=== PATIENT | female | born 1985 | race Caucasian/White ===

== ENCOUNTER 2019-01-27 15:51 | Emergency (ER) | payer OTHER ==
--- OUTSIDE RECORDS SUMMARY | 2019-01-27 16:59 | XMS REPORT | Continuity of Care Document ---
:1985 External Reference #:[id number] Author Name Miya Rich Care Team Providers Name Role Phone Ulysses Lou MD Primary Care Physician Unavailable Payers Date Identification Numbers Payment Provider Subscriber Policy Number: [id number] Daniel Tabares Group Number: [id number] [address] PayID: [id number] [place] [address] Advance Directives Description No Information Available Problems Date Description Provider Status Onset: 08/11/2018 Anxiety Chanell Marker, RPA-C Active Onset: 08/11/2018 Major depressive disorder Chanell Marker, RPA-C Active Onset: 08/11/2018 Posttraumatic stress disorder Chanell Marker, RPA-C Active Onset: 08/11/2018 Contraception using injectable Chanell Marker, RPA-C Active contraceptive medication Note: Depo Provera Family History Date Family Member(s) Observation Comments Father Chronic Obstructive Pulmonary Disease (COPD) Father Depression Father Bipolar Disorder Mother No Current Problems First Sister 41 First Sister Bipolar Disorder First Sister Depression Second Sister No Current Problems Second Sister 48 Social History Type Date Description Comments Sex Unknown Marital Status Significant Other Lives With Boyfriend Lives With 08/11/2018 Children Boy age 8 Girl age 6 ETOH Use Denies alcohol use Tobacco Use Start: Unknown End: Patient is a former Unknown smoker Recreational Drug Use Never Used Drugs Smoking Status Reviewed: 01/12/19 Patient is a former smoker Exercise Type/Frequency Exercises regularly Allergies, Adverse Reactions, Alerts Date Description Reaction Status Severity Comments 07/23/2018 Codeine Active 07/23/2018 Naproxen Sodium Active 07/23/2018 Bee Sting Active 08/11/2018 Pineapple Allergenic Extract Anaphylaxis Active Severe Medications Medication Date Status Form Strength Qnty SIG Indications Ordering Provider Belviq 01/12 Active Tablets 10mg 30tab 1 tab po E66.9 Zsofi s q day Nelson, ACADEMIC ASSISTANT Medroxyprogesterone 08/11 Active Suspension 150mg/ml 1ml Inject Z30.09 Zsofia Acetate Im every Nelson, 3 months ACADEMIC ASSISTANT Fluoxetine HCL 07/23 Active Capsules 20mg 90cap One Ulysses (PMDD) s tablet D. [place], by mouth M.D.,FACP once daily. Xanax Active Tablets 0.5mg 75tab 1 tab Ulysses / s 2-3 D. [place], times M.D.,FACP daily. Do no fill until 08/16/18. Ambien Active Tablets 10mg take 12/01 Unknown to 1 tablet by mouth nightly at bedime as needed maximum daily dose of 1 per day Ibuprofen 07/23 Hx Tablets 200mg as needed Tracey, - DO 12/01 Fluoxetine HCL Hx Capsules 10mg 1 by Unknown /0000 mouth - every Immunizations Description No Information Available Vital Signs Date Vital Result Comment 01/12/2019 3:37pm Height 64.5 inches 5'4.50" Weight 268.12 lb Heart Rate 78 /min BP Systolic Sitting 110 mmHg large adult cuff left arm BP Diastolic Sitting 80 mmHg large adult cuff left arm Respiratory Rate 16 /min O2 % BldC Oximetry 97 % at rest on room air BMI (Body Mass Index) 45.3 kg/m2 12/01/2018 12:48pm Height 64.5 inches 5'4.50" Weight 274.00 lb with shoes Heart Rate 80 /min BP Systolic 124 mmHg BP Diastolic 84 mmHg O2 % BldC Oximetry 98 % BMI (Body Mass Index) 46.3 kg/m2 08/11/2018 1:16pm Height 64.5 inches 5'4.50" Weight 265.00 lb Heart Rate 87 /min BP Systolic Sitting 132 mmHg BP Diastolic Sitting 80 mmHg Body Temperature 99.6 F O2 % BldC Oximetry 96 % BMI (Body Mass Index) 44.8 kg/m2 07/23/2018 3:15pm Height 66 inches 5'6" Weight 264.00 lb Heart Rate 90 /min BP Systolic 123 mmHg Lue average long cuff BP Diastolic 81 mmHg Lue average long cuff Respiratory Rate 16 /min Body Temperature 99.2 F Pain Level 0 O2 % BldC Oximetry 98 % BMI (Body Mass Index) 42.6 kg/m2 Results Description No Information Available Procedures Description No Information Available Encounters Type Date Location Provider Dx Diagnosis Office Visit 12/01/2018 [facility] Internal Martha Damon, E66.9 Obesity, 1:00p Medicine - [place] ACADEMIC ASSISTANT unspecified Rd Z30.09 Encounter for oth general coun and advice on contraception R06.83 Snoring Office Visit 08/11/2018 1:00p [facility] Internal Chanell F32.9 Major depressive [facility] - [place] Marker, RPA-C disorder, single Rd episode, unspecified F41.0 Panic disorder [episodic paroxysmal anxiety] Z30.09 Encounter for oth general coun and advice on contraception Office Visit 07/23/2018 2:30p [facility] Codie F41.0 Panic disorder [facility] Juan Josémurray DO [episodic paroxysmal anxiety] F32.9 Major depressive disorder, single episode, unspecified Plan of Treatment Future Appointment(s):02/09/2019 3:40 pm - LAYLA Langston at [facility] - [place] [address]01/12/2019 - DESTINEY LangstonPE66.9 Obesity, unspecifiedNew Medication:Belviq 10 mg - 1 tab po q dayNew Labs:Comp Metabolic Panel, Ordered: 01/12/19TS (Thyroid Stim Horm), Ordered: 01/12/19Comments:This drug works to control appetite and metabolism.The drug??s negative side effects include migraines, fatigue, memory and attention problemsDo not drink any alcohol.I also advise controlling caloric intake, possibly 1500 gualberto/day. Exercise: Moderate aerobic exercise sustaining moderate shortness ofbreath (able to converse) recommended for 30 min daily at least 5 days/week. Diet:Avoid eating or snacking to satiety.Avoid concentrated sweets, dietary fats, added sugars, and added saltThe "Mediterranean diet" is recommended: this diet in high in vegetables, fruits, nuts and grains (important sources of dietary fats) , low to moderate amount of white meat, fish and dairy, minimum amount of dark meat.Please refer to [email or web address] up:1 month
[2019-01-27 17:16] VITALS: BP 127/72
[2019-01-27] MEDS ORDERED: Ketorolac INJ* 60 MG/2 ML VIAL IM ONE (17:38)
--- NOTE | 2019-01-27 17:44 | UC ---
Back Pain HPI - HPI Summary HPI Summary: Patient was bending over yesterday and felt a sharp pain in the right lower back , sent a shot of pain down the leg - History of Current Complaint Chief Complaint: UCBackPain Stated Complaint: BACK PAIN Time Seen by Provider: 01/27/19 17:28 Hx Obtained From: Patient ?: No Onset/Duration: Sudden Onset, Lasting Days Timing: Constant Severity Initially: Severe Severity Currently: Severe Pain Intensity: 8 Back Pain: Is Discrete @ Character: Sharp, Aching Aggravating Factor(s): Movement Alleviating Factor(s): Rest, Position Associated Signs And Symptoms: Positive: Weakness - Allergies/Home Medications Allergies/Adverse Reactions: Allergies Allergy/AdvReac Type Severity Reaction Status Date / Time bee venom protein (honey bee) Allergy Anaphylatic Verified 01/27/19 17:02 Shock codeine Allergy Airway Verified 01/27/19 17:02 Obstruction naproxen Allergy Hives Verified 01/27/19 17:02 pineapple Allergy Anaphylatic Verified 01/27/19 17:02 Shock seasonal Allergy Eyes Uncoded 01/27/19 17:02 Itchy/Swollen/Red/Watery Home Medications: Home Medications ALPRAZolam TAB* [Xanax TAB*] 1 mg PO BID PRN 01/27/19 [History Confirmed ] Ibuprofen TAB* [Motrin TAB* 800 MG] 800 mg PO ONCE PRN 01/27/19 [History Confirmed 01/27/19] Zolpidem TAB* [Ambien TAB*] 5 mg PO BEDTIME PRN 01/27/19 [History Confirmed ] medroxyPROGESTERone ACETATE* [DEPO-Provera] 150 mg IM SEE INSTRUCTIONS 01/27/19 [History Confirmed 01/27/19] PMH/Surg Hx/FS Hx/Imm Hx Previously Healthy: No - obesity - Surgical History Surgical History: Yes Surgery Procedure, Year, and Place: tonsils; deviated nasal septum 2018; right knee arthroscopies and meniscus partially removed; c section x 2 - Family History Known Family History: Positive: Cardiac Disease, Hypertension - Social History Alcohol Use: None Substance Use Type: None Smoking Status (MU): Never Smoked Tobacco Review of Systems All Other Systems Reviewed And Are Negative: Yes Constitutional: Positive: Negative Skin: Positive: Negative Eyes: Positive: Negative ENT: Positive: Negative Respiratory: Positive: Negative Cardiovascular: Positive: Negative Gastrointestinal: Positive: Negative Genitourinary: Positive: Negative Motor: Positive: Negative Neurovascular: Positive: Negative Musculoskeletal: Positive: Arthralgia, Decreased ROM, Myalgia Neurological: Positive: Negative Psychological: Positive: Negative Is Patient Immunocompromised?: No Physical Exam Triage Information Reviewed: Yes Appearance: Well-Appearing, Pain Distress, Obese Vital Signs: Initial Vital Signs Temp 99.1 F 01/27/19 17:06 Pulse 78 01/27/19 17:06 Resp 22 01/27/19 17:06 BP 127/72 01/27/19 17:06 Pulse Ox 100 01/27/19 17:06 Vital Signs Reviewed: Yes Eye Exam: Normal ENT Exam: Normal Dental Exam: Normal Neck exam: Normal Respiratory Exam: Normal Respiratory: Positive: Chest non-tender, Lungs clear, Normal breath sounds Cardiovascular Exam: Normal Cardiovascular: Positive: RRR, No Murmur, Pulses Normal Abdominal Exam: Normal Bowel Sounds: Positive: Present Musculoskeletal: Positive: No Edema, Strength Limited @ - hard to bear weight fully on right leg, ROM Limited @ - due to pain Neurological Exam: Normal Psychological Exam: Normal Skin Exam: Normal Back Pain Course/Dx - Course Course Of Treatment: hx obtained,exam performed ,meds reviewed, toradol given, educated on stretches for her pain. - Differential Dx/Diagnosis Differential Diagnosis/HQI/PQRI: Herniated Disc, Strain, Sprain Provider Diagnosis: Sacroiliac inflammation Discharge - Sign-Out/Discharge Documenting (check all that apply): Patient Departure All imaging exams completed and their final reports reviewed: No Studies - Discharge Plan Condition: Stable Disposition: HOME Prescriptions: Cyclobenzaprine TAB* [Flexeril 10 MG TAB*] 10 mg PO BID PRN #10 tab PRN Reason: Spasms Patient Education Materials: Sacroiliitis (ED) Forms: *Work Release Referrals: Martha Damon NP [Primary Care Provider] - Additional Instructions: 1. use the medication as prescribed. 2 You received a shot of Toradol, do not use any NSAIDS until 12 tonight. 3. I have included stretches for you to do as well to help the muscle imbalance. - Billing Disposition and Condition Condition: STABLE Disposition: Home - Attestation Statements Provider Attestation: Because the patient is A&Ox3, has no focal neurologic findings, no midline c- spine tenderness, no evidence of intoxication and no painful distracting injuries there is no need to obtain radiographic studies to evaluate the C- spinie.
== END 2019-01-27 18:12 | disposition home or self-care (01) ==
LOC: UCCORT 15:51
DX: M46.1 Sacroiliitis, not elsewhere classified (principal); E66.9 Obesity, unspecified; Z91.030 Bee allergy status; Z88.5 Allergy status to narcotic agent; Z88.8 Allergy status to other drugs, medicaments and biological substances; Z91.018 Allergy to other foods; Z91.09 Other allergy status, other than to drugs and biological substances
CPT/HCPCS: 96372; 99212; G0463; J1885

== ENCOUNTER 2019-10-02 21:03 | Emergency (ER) | payer OTHER ==
[2019-10-02 21:13] VITALS: BP 123/76
--- NOTE | 2019-10-02 21:30 | UC ---
Skin Complaint HPI - HPI Summary HPI Summary: Daughter found a tick on her right upper back this evening. Tick is still attached. - History of Current Complaint Chief Complaint: UCSkin Stated Complaint: TICK BITE Hx Obtained From: Patient Hx Last Menstrual Period: on Depo ?: No Onset/Duration: Sudden Onset, Lasting Hours - 2, Still Present Timing: Constant Current Severity: None Pain Intensity: 0 Location: Discrete - right upper back Aggravating Factor(s): Nothing Alleviating Factor(s): Nothing Associated Signs & Symptoms: Positive: Negative Related History: Insect Bite/Sting - tick bite - Allergy/Home Medications Allergies/Adverse Reactions: Allergies Allergy/AdvReac Type Severity Reaction Status Date / Time bee venom protein (honey bee) Allergy Anaphylatic Verified 10/02/19 21:13 Shock codeine Allergy Airway Verified 10/02/19 21:13 Obstruction naproxen Allergy Hives Verified 10/02/19 21:13 pineapple Allergy Anaphylatic Verified 10/02/19 21:13 Shock seasonal Allergy Eyes Uncoded 10/02/19 21:13 Itchy/Swollen/Red/Watery PMH/Surg Hx/FS Hx/Imm Hx Psychological History: Anxiety - Surgical History Surgical History: Yes Surgery Procedure, Year, and Place: tonsils; deviated nasal septum 2018; right knee arthroscopies and meniscus partially removed; c section x 2 - Family History Known Family History: Positive: Cardiac Disease, Hypertension - Social History Occupation: Works From/At Home Lives: With Family Alcohol Use: Rare Substance Use Type: None Smoking Status (MU): Never Smoked Tobacco Review of Systems All Other Systems Reviewed And Are Negative: Yes Skin: Positive: Other - tick bite Psychological: Positive: Anxious - very anxious about the tick bite Physical Exam Triage Information Reviewed: Yes Appearance: Well-Appearing, No Pain Distress, Obese Vital Signs: Initial Vital Signs Temp 98.5 F 10/02/19 21:10 Pulse 76 10/02/19 21:10 Resp 15 10/02/19 21:10 BP 123/76 10/02/19 21:10 Pulse Ox 100 10/02/19 21:10 Vital Signs Reviewed: Yes Eyes: Positive: Conjunctiva Clear Neck exam: Normal Respiratory Exam: Normal Cardiovascular Exam: Normal Musculoskeletal Exam: Normal Neurological Exam: Normal Psychological Exam: Normal Skin: Positive: Other - embedded non-engorged tick right upper back. Removed with OToms tick twister. Course/Dx - Differential Diagnoses - Skin Complaint Differential Diagnoses: Allergic Reaction, Cellulitis, Lymphadenitis, Tick Born Illness - Diagnoses Provider Diagnosis: Tick bite of upper back excluding scapular region Discharge ED - Sign-Out/Discharge Documenting (check all that apply): Patient Departure All imaging exams completed and their final reports reviewed: No Studies - Discharge Plan Condition: Stable Disposition: HOME Patient Education Materials: Tick Bite (ED) Referrals: Martha Damon [employer] [Primary Care Provider] - Additional Instructions: Low risk tick bite. Antibiotics are not needed. - Billing Disposition and Condition Condition: STABLE Disposition: Home
== END 2019-10-02 21:35 | disposition home or self-care (01) ==
LOC: UCCORT 21:03
DX: S20.461A Insect bite (nonvenomous) of right back wall of thorax, initial encounter (principal); Z91.030 Bee allergy status; Z88.5 Allergy status to narcotic agent; Z88.8 Allergy status to other drugs, medicaments and biological substances; Z91.018 Allergy to other foods; Z91.09 Other allergy status, other than to drugs and biological substances; W57.XXXA Bitten or stung by nonvenomous insect and other nonvenomous arthropods, initial encounter; Y92.9 Unspecified place or not applicable
CPT/HCPCS: 99211; G0463

== ENCOUNTER 2019-12-07 10:44 | Emergency (ER) | payer OTHER ==
[2019-12-07 11:19] VITALS: BP 124/72
--- NOTE | 2019-12-07 11:35 | UC ---
Head Injury HPI - HPI Summary HPI Summary: Pt presents with c/o contusion to right side of forehead along brow line and left side of jaw. Pt states that she slipped while getting out of the shower 2 days ago. Pt states that she felt fine after falling but over the last two days she has not slept well, that she has photophobia, and has a CARLSON. Denies LOC , nausea, vomiting, change in vision or worsening CARLSON - History Of Current Complaint Chief Complaint: UCHeadInjury Stated Complaint: HEAD INJURY Time Seen by Provider: 12/07/19 11:20 Hx Obtained From: Patient Hx Last Menstrual Period: doesn't get period while on depo inj ?: No Onset/Duration: Sudden Onset, Still Present Severity Currently: Mild Severity Initially: Moderate Pain Intensity: 5 Character: Dull Aggravating Factor(s): Other - movement, change in position Alleviating Factor(s): Other - rest Associated Signs And Symptoms: Positive: Negative - Risk Factors SDH Risk Factor: Negative - Allergies/Home Medications Allergies/Adverse Reactions: Allergies Allergy/AdvReac Type Severity Reaction Status Date / Time bee venom protein (honey bee) Allergy Anaphylatic Verified 12/07/19 11:12 Shock codeine Allergy Airway Verified 12/07/19 11:12 Obstruction naproxen Allergy Hives Verified 12/07/19 11:12 pineapple Allergy Anaphylatic Verified 12/07/19 11:12 Shock seasonal Allergy Eyes Uncoded 12/07/19 11:12 Itchy/Swollen/Red/Watery Home Medications: Home Medications Ibuprofen TAB* [Motrin TAB* 800 MG] 1 tab PO ONCE 12/07/19 [History Confirmed ] PMH/Surg Hx/FS Hx/Imm Hx Previously Healthy: Yes - Surgical History Surgical History: Yes Surgery Procedure, Year, and Place: tonsils. deviated nasal septum 2018. right knee arthroscopies and meniscus partially removed. c section x 2 - Family History Known Family History: Positive: Cardiac Disease, Hypertension - Social History Occupation: Employed Full-time Lives: With Family Alcohol Use: Rare Substance Use Type: None Smoking Status (MU): Never Smoked Tobacco Have You Smoked in the Last Year: No - Immunization History Vaccination Up to Date: Yes Review of Systems All Other Systems Reviewed And Are Negative: Yes Constitutional: Positive: Negative Skin: Positive: Bruising - right side of forehead along browline Eyes: Positive: Negative ENT: Positive: Other - left side jaw pain Respiratory: Positive: Negative Cardiovascular: Positive: Negative Gastrointestinal: Positive: Negative Genitourinary: Positive: Negative Motor: Positive: Negative Neurovascular: Positive: Negative Musculoskeletal: Positive: Edema - right side of forehead, with bruising Neurological: Positive: Headache Psychological: Positive: Negative Is Patient Immunocompromised?: No Physical Exam Triage Information Reviewed: Yes Appearance: Well-Appearing Vital Signs: Initial Vital Signs Temp 98.6 F 12/07/19 11:13 Pulse 95 12/07/19 11:13 Resp 15 12/07/19 11:13 BP 124/72 12/07/19 11:13 Pulse Ox 99 12/07/19 11:13 Vital Signs Reviewed: Yes Eye Exam: Normal ENT Exam: Normal ENT: Positive: Normal ENT inspection Dental Exam: Normal Neck exam: Normal Neck: Positive: Supple, Nontender Respiratory Exam: Normal Respiratory: Positive: Normal breath sounds Cardiovascular Exam: Normal Musculoskeletal Exam: Normal Neurological Exam: Normal Psychological Exam: Normal Skin Exam: Other - slight bruising to right side of forehead along brow line, no step off, indentation appreciated. Pt c/o pain with PE of right side forehead. Head Injury Course/Dx - Differential Dx/Diagnosis Differential Diagnosis/HQI/PQRI: Concussion With LOC, Concussion Without LOC, Contusion Provider Diagnosis: Contusion of head, Mild concussion, Contusion of mandibular joint area Discharge ED - Sign-Out/Discharge Documenting (check all that apply): Patient Departure All imaging exams completed and their final reports reviewed: No Studies - Discharge Plan Condition: Stable Disposition: HOME Patient Education Materials: Concussion (ED) Forms: *Work Release Referrals: Martha Damon NP [Primary Care Provider] - If Needed - Billing Disposition and Condition Condition: STABLE Disposition: Home
== END 2019-12-07 11:52 | disposition home or self-care (01) ==
LOC: UCCORT 10:44
DX: S00.93XA Contusion of unspecified part of head, initial encounter (principal); S00.83XA Contusion of other part of head, initial encounter; S06.0X0A Concussion without loss of consciousness, initial encounter; Z91.030 Bee allergy status; Z88.5 Allergy status to narcotic agent; Z91.09 Other allergy status, other than to drugs and biological substances; Z91.018 Allergy to other foods; W01.0XXA Fall on same level from slipping, tripping and stumbling without subsequent striking against object, initial encounter; Y92.9 Unspecified place or not applicable
CPT/HCPCS: 99211; G0463